=== PATIENT | female | born 1975 | race Caucasian/White ===

== ENCOUNTER → 2017-01-30 | Outpatient (CLI) | payer MEDICAID ==
--- NOTE | 2017-01-30 16:51 | WOMENS IMAGING REPORT ---
EXAM DESCRIPTION: BILAT SCREENING MAMMO W/CAD COMPLETED DATE/TIME: 01/30/2017 11:02 am REASON FOR STUDY: SCREENING MAMMO Z12.31 ENCNTR SCREEN MAMMOGRAM FOR MALIGNANT NEOPLASM OF JANET COMPARISON: 2012 TECHNIQUE: Standard craniocaudal and mediolateral oblique views of each breast recorded using digita l acquisition. LIMITATIONS: None. FINDINGS: No masses, calcifications or architectural distortion. No areas of suspicion. Read with the assistance of CAD. .[facility] - R2 Cenova Version 1.3 .[facility] - R2 Cenova Version 1.3 .[facility] - R2 Cenova Version 2.4 .[facility] - R2 Cenova Version 2.4 .[facility] - R2 Director Corporate Version 9.2 IMPRESSION: NORMAL MAMMOGRAM. BIRADS 1. BREAST DENSITY: b. There are scattered areas of fibroglandular density. BIRAD: 1 NEGATIVE RECOMMENDATION: ROUTINE SCREENING COMMENT: The patient has been notified of the results by letter per SA requirements. Additional no tification policies are in place for contacting patient with suspicious or incomplete findings. Quality ID #[id number]: The [employer] recommends an annual screening mammogram for women aged 40 years or over. This facility utilizes a reminder system to ensure that all patients receive reminder letters, and/or direct phone calls for appointments. This includes reminders for routine scr eening mammograms, diagnostic mammograms, or other Breast Imaging Interventions when appropriate. Th is patient will be placed in the appropriate reminder system. The [employer] (ACR) has developed recommendations for screening MRI of the breast s in certain patient populations, to be used in conjunction with mammography. Breast MRI surveillanc e may be appropriate for women with more than 20% lifetime risk of developing breast cancer as deter mined by genetic testing, significant family history of the disease, or history of mantle radiation f or Hodgkins Disease. ACR Practice Guidelines 2008. TECHNICAL DOCUMENTATION: FINDING NUMBER: (1) ASSESSMENT: (1) JOB ID: [id number] [employer]- All Rights Reserved
== END ==
LOC: WI 07:41
PROVIDERS: ATTEND Internal Medicine
DX: Z12.31 Encounter for screening mammogram for malignant neoplasm of breast (principal)
CPT/HCPCS: 77067; G0202

== ENCOUNTER 2018-11-13 09:57 | Day surgery (SDC) | payer OTHER, MEDICAID ==
[2018-11-12 12:08] LABS: HEMOGLOBIN 13.9 g/dL (12.0-15.5); MEAN CORPUSCULAR HEMOGLOBIN 31.2 pg (27.0-33.4); MEAN CORPUSCULAR HGB CONC 34.8 g/dL (32.0-36.0); MEAN CORPUSCULAR VOLUME 90 fl (80-97); PLATELET COUNT 314 10^3/uL (150-450); RED BLOOD COUNT 4.46 10^6/uL (3.72-5.28); RED CELL DISTRIBUTION WIDTH 12.5 % (11.5-14.0); WHITE BLOOD COUNT 9.3 10^3/uL (4.0-10.5)
[2018-11-12 12:29] LABS: APPEARANCE,URINE CLEAR; BILIRUBIN,URINE NEGATIVE (NEGATIVE); COLOR,URINE YELLOW; GLUCOSE, URINE NEGATIVE (NEGATIVE); KETONES,URINE NEGATIVE (NEGATIVE); LEUKOCYTE ESTERASE,URINE NEGATIVE (NEGATIVE); NITRITE,URINE NEGATIVE (NEGATIVE); PROTEIN,URINE NEGATIVE (NEGATIVE); URINE SPECIFIC GRAVITY 1.016; UROBILINOGEN,URINE NEGATIVE mg/dL (<2.0)
[2018-11-12 12:32] LABS: ALANINE AMINOTRANSFERASE 21 U/L (9-52); ALBUMIN 4.9 g/dL (3.5-5.0); ALKALINE PHOSPHATASE 56 U/L (38-126); ANION GAP 10 (5-19); ASPARTATE AMINO TRANSFERASE 23 U/L (14-36); BILIRUBIN,DIRECT 0.3 mg/dL (0.0-0.4); BILIRUBIN,TOTAL 0.5 mg/dL (0.2-1.3); BLOOD UREA NITROGEN 23 mg/dL (7-20); CALCIUM 9.9 mg/dL (8.4-10.2); CARBON DIOXIDE 25 mmol/L (22-30); CHLORIDE 103 mmol/L (98-107); GLUCOSE 81 mg/dL (75-110); POTASSIUM 4.5 mmol/L (3.6-5.0); SODIUM 137.7 mmol/L (137-145)
[~2018-11-13 09:57] MED LIST: CEFAZOLIN 1 GM/D5W RTU 1 GM/50 ML RTUPB IV ONE; CEFAZOLIN 1 GM/D5W RTU 1 GM/50 ML RTUPB IV PRN; LACTATED RINGERS 1000 ML IV PRN; LIDOCAINE 0.5% INJ-PF (5 MG/ML) 50 ML SDV SUBCUT PRN
[2018-11-13] MEDS ORDERED: LIDOCAINE 2% INJ-PF (100 MG/5 ML) SYRINGE ONE (10:47)
[2018-11-13] MEDS ORDERED: KETOROLAC TROMETHAMINE 60 MG/2 ML SDV ONE (10:47)
[2018-11-13] MEDS ORDERED: FENTANYL CITRATE INJ/PF 100 MCG/2 ML AMPUL ONE (10:47)
[2018-11-13] MEDS ORDERED: DEXAMETHASONE SOD PHOSPHATE INJ 4 MG/1 ML VIAL ONE (10:48)
[2018-11-13] MEDS ORDERED: PROPOFOL INJ 200 MG/20 ML VIAL IV ONE (10:48)
[2018-11-13] MEDS ORDERED: ONDANSETRON HCL INJ/PF 4 MG/2 ML SDV ONE (10:48)
[2018-11-13] MEDS ORDERED: MIDAZOLAM 2 MG/2 ML INJ ONE (10:48)
[2018-11-13] MEDS ORDERED: SCOPOLAMINE HYDROBROMIDE 1.5 MG PATCH.TD72 ONE (11:38)
[2018-11-13] MEDS ORDERED: RINGERS SOLUTION,LACTATED 1,000 ML IV ONE (12:00)
[2018-11-13] MEDS ORDERED: MEPERIDINE HCL/PF INJ 25 MG/1 ML DISP.SYRIN IV PRN (13:06)
[2018-11-13] MEDS ORDERED: PROMETHAZINE HCL INJ 25 MG/1 ML VIAL IV PRN ×3 (13:06→13:47)
[2018-11-13] MEDS ORDERED: FENTANYL CITRATE INJ/PF 100 MCG/2 ML AMPUL IV PRN ×3 (13:06)
[2018-11-13] MEDS ORDERED: DIPHENHYDRAMINE HCL 50 MG/ML VIAL IV PRN (13:06)
[2018-11-13] MEDS ORDERED: KETOROLAC TROMETHAMINE INJ/PF 30 MG/1 ML SDV ONE (13:30)
[2018-11-13] MEDS ORDERED: OXYCODONE-ACETAMINOPHEN 5-325 MG TABLET PO PRN ×2 (13:45→13:46)
--- NOTE | 2018-11-13 13:55 | OPERATIVE REPORT E ---
Operative Report NAME: GALEN ORANTES : 1975 AGE: 42Y DATE OF SURGERY: 11/13/2018 ROOM: PREOPERATIVE DIAGNOSIS: DYSFUNCTIONAL UTERINE BLEEDING. POSTOPERATIVE DIAGNOSIS: DYSFUNCTIONAL UTERINE BLEEDING. OPERATION: Dilation and curettage hysteroscopy and failed Novasure. SURGEON: JUANI RUIZ M.D. ANESTHESIA: General. PERTINENT HISTORY/OPERATIVE FINDINGS: This is a 42-year-old female, multiparous, who had been having trouble with dysfunctional bleeding and was wanting to consider a Novasure ablation in order to correct the problem. At the time of surgery, the vagina appeared to be normal. The cervix appeared to be normal and parous. Uterus appeared to be normal size, however, the uterine cavity was on the small side. Adnexa palpated and negative. PROCEDURE: The patient was brought into the OR, placed on the table in a supine position, inducted under general anesthesia. Following this, she was repositioned in dorsal lithotomy position and prepped and draped in a sterile fashion. The bladder was drained of about 30 mL of clear yellow urine. A pelvic under anesthesia was performed. A weighted speculum was inserted. The cervix was grasped to its anterior lip with a single tooth tenaculum and an Allis. The cervical canal length was 4 cm. The uterus sounded to 8 cm. It was dilated to a #8 Hegar dilator. A curettage was carried out. We did use polyp forceps to remove any additional tissue, none further was removed. Having accomplished this, hysteroscope was inserted through the cervix and carried through the canal until the fundus was entered. The hysteroscopy was using normal saline. At this point in time, the cavity appeared to be normal. We went ahead and sucked out the excess saline, removed the hysteroscope, opened up the Novasure. We took the length at 4 cm, consistent with our findings of the length of the uterine cavity. We gently inserted the Novasure through the cervix and entered the uterine cavity. It was taken up to the fundus and then opened up. We went north, south, east, west, rotating it a number of times and could not get the hysteroscope to open beyond 2 cm which would preclude being able to do this. We closed the hysteroscope, removed it, opened it again, closed it, opened it again, and closed it, reinserted it through the cervix, took it to the fundus and tried to reopen again. It was set for 4 cm length, however, once again it would not open beyond 2 cm. Once again we tried to go north, south, east, west, rotating it about 90 degrees in between. We did this about 3 times and again it would not open beyond 2 cm with precluding us the ability to go ahead and do a Novasure. At this point in time it was closed, removed once again, opened up. It did open to 4.5 outside of the patient. It was closed, it was gently inserted through the cervix one last time, taken to the fundus, opened up, and once again it would not open beyond 2 cm with a cavity length of 4 cm. We went north, south, east, west, rotating in between. It stayed at width of 2 cm. With this being the case, we went ahead and canceled the procedure. The instrument was closed, removed. The tenaculum and the Allis were removed. There was no evidence of active bleeding, excess blood was sopped up with a sponge. Estimated blood loss was about 20 mL. The weighted speculum was removed. Anesthesia was stopped. Patient was then put back in the supine position, transferred to the recovery room in satisfactory condition. DICTATING PHYSICIAN: JUANI RUIZ M.D. [id number] PHY#: [id number] ID: [id number] JOB#: [id number] ACCT: [id number] cc:JUANI RUIZ M.D. >
[2018-11-13] MEDS ORDERED: OXYCODONE-ACETAMINOPHEN 5-325 MG TABLET ONE (14:14)
[2018-11-13 15:41] VITALS: BP 109/75
== END 2018-11-13 15:41 | disposition home or self-care (01) ==
LOC: OROUT 09:57
PROVIDERS: ATTEND Obstetrics & Gynecology
DX: N92.1 Excessive and frequent menstruation with irregular cycle (principal); N94.6 Dysmenorrhea, unspecified; N93.8 Other specified abnormal uterine and vaginal bleeding
CPT/HCPCS: 36415; 85027; 81025; 80053; 81001; 88305 ×2; 58563; J2250; J0690; J1100; J3010; J2001; J1885; J2405; J2704; 952

== ENCOUNTER → 2018-12-26 | Outpatient (CLI) | payer OTHER, MEDICAID ==
--- NOTE | 2018-12-26 14:59 | WOMENS IMAGING REPORT ---
EXAM DESCRIPTION: BILAT SCREENING MAMMO W/CAD COMPLETED DATE/TIME: 12/26/2018 1:50 pm REASON FOR STUDY: Z12.31 SCREENING MAMMO Z12.31 ENCNTR SCREEN MAMMOGRAM FOR MALIGNANT NEOPLASM OF B RE COMPARISON: 01/30/2017 and 06/22/2012 EXAM PARAMETERS: Standard craniocaudal and mediolateral oblique views of each breast recorded using digital acquisition. Read with the assistance of CAD. .REPLACED BY [facility] - [employer] Installer Supervisor Version 9.2 LIMITATIONS: None. FINDINGS: No suspicious masses, suspicious calcifications or architectural distortion. No areas of c oncern. IMPRESSION: Negative MAMMOGRAM. BIRADS 1 BREAST DENSITY: b. There are scattered areas of fibroglandular density. BIRAD: ASSESSMENT: 1 NEGATIVE RECOMMENDATION: ROUTINE SCREENING in 1 year COMMENT: The patient has been notified of the results by letter per MQSA requirements. Additional no tification policies are in place for contacting patient with suspicious or incomplete findings. Quality ID #225: The [employer] recommends an annual screening mammogram for women aged 40 years or over. This facility utilizes a reminder system to ensure that all patients receive reminder letters, and/or direct phone calls for appointments. This includes reminders for routine scr eening mammograms, diagnostic mammograms, or other Breast Imaging Interventions when appropriate. Th is patient will be placed in the appropriate reminder system. TECHNICAL DOCUMENTATION: FINDING NUMBER: (1) ASSESSMENT: (1) JOB ID: [id number] [employer]- All Rights Reserved Reading location - IP/workstation name: [email or web address]
== END ==
LOC: WI 13:30
PROVIDERS: ATTEND Obstetrics & Gynecology
DX: Z12.31 Encounter for screening mammogram for malignant neoplasm of breast (principal)
CPT/HCPCS: 77067

== ENCOUNTER → 2020-01-01 | Outpatient (CLI) | payer OTHER ==
--- NOTE | 2020-01-03 11:43 | WOMENS IMAGING REPORT ---
EXAM DESCRIPTION: 3D SCREENING MAMMO BILAT IMAGES COMPLETED DATE/TIME: 01/01/2020 8:03 am REASON FOR STUDY: Z12.31 ENCNTR SCREEN MAMMOGRAM FOR MALIGNANT NEOPLASM OF BREAST Z12.31 ENCNTR SCR EEN MAMMOGRAM FOR MALIGNANT NEOPLASM OF JANET COMPARISON: 12/26/2018, 02/01/2017, 06/22/2012 EXAM PARAMETERS: Standard craniocaudal and mediolateral oblique views of each breast recorded using digital acquisition and breast tomosynthesis. Read with the assistance of CAD. .[facility] - R2 Fire Prevention Inspector Version 9.2 LIMITATIONS: None. FINDINGS: RIGHT BREAST MASSES: No suspicious masses. CALCIFICATIONS: No new or suspicious calcifications. ARCHITECTURAL DISTORTION: None. ASYMMETRY: There is a developing focal asymmetry within the right upper inner quadrant, approximately 6 cm from the nipple, middle 1/3 of the breast parenchyma. OTHER: No other significant findings. LEFT BREAST MASSES: No suspicious masses. CALCIFICATIONS: No new or suspicious calcifications. ARCHITECTURAL DISTORTION: None. ASYMMETRY: None noted. OTHER: No other significant findings. IMPRESSION: Developing asymmetry within the right upper inner quadrant. 0 Incomplete: Needs Additional Imaging Evaluation and/or prior Mammograms for Comparison. BREAST DENSITY: b. There are scattered areas of fibroglandular density. BIRAD: ASSESSMENT: 0 Incomplete: Needs Additional Imaging Evaluation and/or prior Mammograms for C omparison. RECOMMENDATION: RECOMMENDED FOLLOW-UP: Recommend spot compression of the above findings. Additional sonographic evaluation at the interpreting radiologist's discretion. The patient will be contacted for additional imaging. COMMENT: The patient has been notified of the results by letter per SA requirements. Additional no tification policies are in place for contacting patient with suspicious or incomplete findings. Quality ID #225: The [employer] recommends an annual screening mammogram for women aged 40 years or over. This facility utilizes a reminder system to ensure that all patients receive reminder letters, and/or direct phone calls for appointments. This includes reminders for routine scr eening mammograms, diagnostic mammograms, or other Breast Imaging Interventions when appropriate. Th is patient will be placed in the appropriate reminder system. TECHNICAL DOCUMENTATION: FINDING NUMBER: (1) ASSESSMENT: (1) JOB ID: [id number] 2010 [employer]- All Rights Reserved Reading location - IP/workstation name: [email or web address]
== END ==
LOC: WI 07:46
PROVIDERS: ATTEND Nurse Practitioner Primary Care
DX: Z12.31 Encounter for screening mammogram for malignant neoplasm of breast (principal); N64.89 Other specified disorders of breast
CPT/HCPCS: 77063; 77067

== ENCOUNTER → 2020-01-08 | Outpatient (CLI) | payer MEDICAID, OTHER ==
--- NOTE | 2020-01-08 10:12 | WOMENS IMAGING REPORT ---
EXAM DESCRIPTION: RIGHT DIAGNOSTIC MAMMO W/CAD IMAGES COMPLETED DATE/TIME: 01/08/2020 10:00 am REASON FOR STUDY: R92.8 R92.8 OTHER ABNORMAL AND INCONCLUSIVE FINDINGS ON DIAGNOSTIC IMAGING N63.12 UNSPECIFIED LUMP IN THE RIGHT BREAST, UPPER INNER JONNY COMPARISON: None. EXAM PARAMETERS: Full field mediolateral and spot compression in the CC, MLO, and mediolateral proje ctions was performed. LIMITATIONS: None. FINDINGS: BREAST LATERALITY: Choose MASSES: No suspicious masses. CALCIFICATIONS: No new or suspicious calcifications. ARCHITECTURAL DISTORTION: None. ASYMMETRY: A focal asymmetry demonstrated on screening mammography disperses with spot compression. OTHER: No other significant findings. IMPRESSION: No evidence of malignancy on today's examination. BREAST DENSITY: b. There are scattered areas of fibroglandular density. BIRAD: ASSESSMENT: 1 Negative. RECOMMENDATION: RECOMMENDED FOLLOW UP: Birads 1 or 2: The patient should resume routine screening . SPECIFIC INTERVENTION/IMAGING/CONSULTATION RECOMMENDED:No additional intervention/ imaging/consultati on needed at this time. COMMUNICATION:The negative/benign results were communicated to the patient. COMMENT: The patient has been notified of the results by letter per SA requirements. Additional no tification policies are in place for contacting patient with suspicious or incomplete findings. Quality ID #225: The [employer] recommends an annual screening mammogram for women aged 40 years or over. This facility utilizes a reminder system to ensure that all patients receive reminder letters, and/or direct phone calls for appointments. This includes reminders for routine scr eening mammograms, diagnostic mammograms, or other Breast Imaging Interventions when appropriate. Th is patient will be placed in the appropriate reminder system. TECHNICAL DOCUMENTATION: FINDING NUMBER: (1) ASSESSMENT: (1) JOB ID: [id number] 2010 [employer]- All Rights Reserved Reading location - IP/workstation name: [email or web address]
== END ==
LOC: WI 09:34
PROVIDERS: ATTEND Nurse Practitioner Primary Care
DX: R92.8 Other abnormal and inconclusive findings on diagnostic imaging of breast (principal)
CPT/HCPCS: 77065